=== PATIENT | female | born 1955 | race Caucasian/White ===

== ENCOUNTER 2020-02-06 02:46 | Emergency (ER) | payer MEDICARE ==
[~2020-02-06] VITALS: Ht 157.5 cm; Wt 66.8 kg
--- NOTE | 2020-02-06 03:41 | NUR ---
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 Denies symptoms at this time. NSR on monitor. VSS. Labs drawn. Pt updated to POC. Call light in reach.
[2020-02-06 04:03] LABS: BASOPHILS % (AUTO) 1 % (0-1); EOSINOPHILS % (AUTO) 5 % (1-7); LYMPHOCYTES % (AUTO) 25 % (22-44); MEAN CORPUSCULAR HEMOGLOBIN 28.6 pg (27.0-34.8); MEAN CORPUSCULAR HGB CONC 32.3 g/dL (32.4-35.8); MEAN PLATELET VOLUME 7.7 fL (7.4-10.4); MONOCYTES % (AUTO) 11 % (2-9); NEUTROPHILS % (AUTO) 58 % (42-75); PLATELET COUNT 266 x10^3/uL (130-400); RED BLOOD COUNT 4.53 x10^6/uL (3.82-5.3); RED CELL DISTRIBUTION WIDTH 15.1 % (9.6-15.2)
[2020-02-06 04:04] LABS: MD NO
[2020-02-06 04:05] LABS: ALBUMIN 3.9 g/dL (3.4-5.0); ANION GAP 3 mmol/L (5-15); CHLORIDE 109 mmol/L (98-107); CREATININE 0.92 mg/dL (0.55-1.02)
[2020-02-06 04:15] LABS: TROPONIN I < 0.015 ng/mL (0.000-0.045)
[2020-02-06 05:04] VITALS: BP 115/56
--- NOTE | 2020-02-06 05:04 | NUR ---
Pt resting with no s/s of acute distress. VSS. NSR on monitor. Awaiting recheck.
== END 2020-02-06 05:47 | disposition home or self-care (01) ==
LOC: ED 05:30
DX: I48.0 Paroxysmal atrial fibrillation (principal); R00.2 Palpitations; M25.522 Pain in left elbow
CPT/HCPCS: 36415; 80048; 82040; 83735; 84439; 84443; 84484; 85025; 93005; 99284